=== PATIENT | female | born 1965 | race Caucasian/White ===

== ENCOUNTER 2017-02-17 09:16 | Day surgery (SDC) | payer OTHER ==
[2017-02-17] MEDS ORDERED: LIDOCAINE 1% 2 ML INJ ONE (09:35)
[2017-02-17] MEDS ORDERED: LR 1,000 ML IV ONE (09:38)
[2017-02-17] MEDS ORDERED: LIDOCAINE 1% 2 ML INJ ID PRN (09:38)
[2017-02-17 09:51] VITALS: PULSE 65
--- NOTE | 2017-02-17 10:10 | PDGENHP ---
History & Physical Chief Complaint: Ascending colon polyp, here for removal Relevant Physical Exam: GEN: NAD. Cardiac: RRR. Lungs: CTA B. Abd: Soft, nt, nd
--- NOTE | 2017-02-17 10:14 | PDANEPAE ---
ANE History of Present Illness 52 yo for colonoscopy ANE Past Medical History - Cardiovascular History Hx Hypertension: No Hx Arrhythmias: No Hx Chest Pain: No Hx Coronary Artery / Peripheral Vascular Disease: No Hx CHF / Valvular Disease: No Hx Palpitations: No - Pulmonary History Hx COPD: No Hx Asthma/Reactive Airway Disease: No Hx Recent Upper Respiratory Infection: No Hx Oxygen in Use at Home: No Hx Sleep Apnea: No Sleep Apnea Screening Result - Last Documented: Negative - Neurologic History Hx Cerebrovascular Accident: No Hx Seizures: No Hx Dementia: No - Endocrine History Hx Diabetes: No - Renal History Hx Renal Disorders: No - Liver History Hx Hepatic Disorders: No - Neurological & Psychiatric Hx Hx Neurological and Psychiatric Disorders: Yes Neurological / Psychiatric History Comment: depression - Cancer History Hx Cancer: No - Congenital Disorder History Hx Congenital Disorders: No - GI History Hx Gastrointestinal Disorders: Yes Gastrointestinal History Comment: polyps - Other Health History Other Health History: none - Chronic Pain History Chronic Pain: No - Surgical History Prior Surgeries: dental procedure,colonoscopy ANE Review of Systems Review of Systems: - Exercise capacity METS (RN): 4 METS ANE Patient History - Allergies Allergies/Adverse Reactions: No Known Allergies Allergy (Verified 02/16/17 14:09) - Home Medications Home medications: home medication list seen and reviewed Home Medications: Effexor 02/16/17 [Last Taken Unknown] - NPO status NPO Since - Liquids (Date): 02/17/17 NPO Since - Liquids (Time): 02:00 NPO Since - Solids (Date): 02/16/17 NPO Since - Solids (Time): 11:00 - Anes Hx Anes Hx: no prior problems - Smoking Hx Smoking Status: Current every day smoker - Family Anes Hx Family Hx Anesthesia Complications: none ANE Labs/Vital Signs - Vital Signs Blood Pressure: 138/76 Heart Rate: 65 Respiratory Rate: 15 O2 Sat (%): 95 Height: 5 ft 2 in Weight: 78.018 kg ANE Physical Exam - Airway Neck exam: FROM Mallampati Score: Class 1 Mouth exam: poor dentition - Pulmonary Pulmonary: no respiratory distress - Cardiovascular Cardiovascular: regular rate and rhythym - ASA Status ASA Status: II ANE Anesthesia Plan Anesthesia Plan: GA with mask
[2017-02-17] MEDS ORDERED: PROPOFOL/EMULSION 500 MG/50 ML BOTTLE IV ONE (10:16)
[2017-02-17] MEDS ORDERED: NALOXONE HCL 0.4 MG/ML INJ IVP PRN (10:31)
--- NOTE | 2017-02-17 11:01 | GIREPORT ---
[facility] Surgical Services - Endoscopy Department Patient Name: Carina Dickson Procedure Date: 02/17/2017 10:12 AM Patient Type: Outpatient Attending MD/ ER Physician: Piter Dial MD Procedure: Colonoscopy Indications: Therapeutic procedure for colon polyps. Known large ascending colon lou yp, here for endoscopic mucosal resection. Providers: Piter Dial MD Medicines: Monitored Anesthesia Care Complications: No immediate complications. Description of Procedure: After obtaining informed consent, the scope was passed under direct vis ion. Throughout the procedure, the patient's blood pressure, pulse, and oxyg en saturations were monitored continuously. The was introduced through the anus and advanced to the terminal ileum, with identification of the appendic eal orifice and IC valve. The colonoscopy was performed without difficulty. The patient tolerated the procedure well. The quality of the bowel preparat ion was good. Findings: The perianal and digital rectal examinations were normal. The terminal ileum appeared normal. A 15 mm polyp was found in the ascending colon. The polyp was sessile. The base of the polyp was injected with 1.5ml of 1;100,000 epinephrine/sali ne solution of the purpose of endoscopic mucosal resection. The polyp was removed with a piecemeal technique using a hot snare. Resection and retrieval were complete. Verification of patient identification for the specimen was done by the physician and nurse using the patient's name a nd date. Estimated blood loss was minimal. Area was tattooed with an injection of 2 mL of Spot (carbon black). To prevent bleeding post-intervention, three hemostatic clips were successfully placed. The re was no bleeding at the end of the procedure. The retroflexed view of the distal rectum and anal verge was normal and showed no anal or rectal abnormalities. Estimated Blood Loss: Estimated blood loss: none. Post Op Diagnosis: - The examined portion of the ileum was normal. - One 15 mm polyp in the ascending colon, removed using endoscopic muco demetri resection. Resected and retrieved. Tattooed. Clips were placed. - The distal rectum and anal verge are normal on retroflexion view. Recommendation: - Discharge patient to home (with escort). - Resume previous diet. - Continue present medications. - Repeat colonoscopy in 6 months for surveillance (piecemeal polypectom y). - Await pathology results. Results are available within 10 days. - Thank you for allowing me to participate in the care of your patient. Attending Participation: I personally performed the entire procedure. Piter Dial MD Piter Dial MD 02/17/2017 11:01:16 AM This report has been signed electronicallyPiter Dial MD Number of Addenda: 0 Note Initiated On: 02/17/2017 10:12 AM Total Procedure Duration Time 0 hours 25 minutes 49 seconds [email or web address]
--- NOTE | 2017-02-17 11:05 | POSTANESTH ---
Post Anesthetic Evaluation Cardiovascular Status: Normal, Stable Respiratory Status: Normal, Stable Level of Consciousness/Mental Status: Can Participate in Eval Pain Control: Adequate, Prn Tx Ordered Nausea/Vomiting Control: Adequate, Prn Tx Ordered Complications Possibly Related to Anesthesia: None Noted
[2017-02-17 11:30] VITALS: TEMP 97.5; O2SAT 96
[2017-02-17 11:44] VITALS: BP 112/64; RESP 14
== END 2017-02-17 11:59 | disposition home or self-care (01) ==
LOC: FSGY 09:16
PROVIDERS: ATTEND Internal Medicine Gastroenterology
PROC: 0DJD8ZZ Inspection of Lower Intestinal Tract, Via Natural or Artificial Opening Endoscopic (ICD-10-PCS; principal; 2017-02-17 12:00)
PROC: 0DBK7ZX Excision of Ascending Colon, Via Natural or Artificial Opening, Diagnostic (ICD-10-PCS; principal; 2017-02-17 12:00)
DX: D12.2 Benign neoplasm of ascending colon (principal)
CPT/HCPCS: J2704